=== PATIENT | female | born 1975 ===

== ENCOUNTER 2017-10-24 14:07 | Emergency (ER) | payer MEDICAID, OTHER ==
[2017-10-24 14:21] VITALS: BMI 25.7
[2017-10-24 14:25] VITALS: BP 119/73; PULSE 59; TEMP 99; O2SAT 98
[2017-10-24] MEDS ORDERED: Lidocaine 5% Patch TD STA (14:33)
--- NOTE | 2017-10-24 14:33 | C.PDOC ---
History Of Present Illness NEW ONSET R LOWER BACK PAIN X 2 DAYS. NO TRAUMA. RADATION R BUTTOCK, WORSE W MOVEMENT. NO RELIEF W TYLENOL @ 0800. NO WEAK/NUMB EXAM NONTOXIC BACK +TEND W SPASM R LOWER BACK. NO LS TEND. LIMITED ROM DUE TO PAIN. NEURO INTACT SKIN NO LESIONS Time Seen by Provider: 10/24/17 14:23 Chief Complaint (Nursing): Back Pain History Per: Patient History/Exam Limitations: no limitations Onset/Duration Of Symptoms: Days Current Symptoms Are (Timing): Still Present Severity: Moderate Past Medical History Reviewed: Historical Data, Nursing Documentation, Vital Signs Vital Signs: Last Vital Signs Temp 99.0 F 10/24/17 14:21 Pulse 59 L 10/24/17 14:21 Resp 18 10/24/17 14:21 BP 119/73 10/24/17 14:21 Pulse Ox 98 10/24/17 14:33 - Medical History PMH: No Chronic Diseases Surgical History: Cholecystectomy Family History: States: No Known Family Hx - Social History Hx Alcohol Use: No Hx Substance Use: No - Immunization History Hx Tetanus Toxoid Vaccination: No (DENIES) Hx Influenza Vaccination: No (DENIES) Hx Pneumococcal Vaccination: No (DENIES) Review Of Systems Except As Marked, All Systems Reviewed And Found Negative. Musculoskeletal: Positive for: Back Pain (pain in right lower back, radiates into right buttock), Other (no trauma) Neurological: Negative for: Weakness, Numbness Physical Exam - Physical Exam Appears: Non-toxic, No Acute Distress Skin: Normal Color, Warm, Other (no lesions) Head: Atraumatic, Normacephalic Eye(s): bilateral: Normal Inspection, PERRL Nose: Normal Neck: Supple Chest: Symmetrical Respiratory: Plerual Rub Back: Decreased ROM (limited rom due to pain), No Paraspinal Tenderness, Other ( tenderness with spasm in the right lower back) Neurological/Psych: Oriented x3, Normal Speech, Normal Cognition, Normal Motor, Normal Sensation, Other (intact) ED Course And Treatment O2 Sat by Pulse Oximetry: 98 (RA) Pulse Ox Interpretation: Normal Medical Decision Making Medical Decision Making: Plan: --Flexeril - 10 mg PO --Neurontin 300 mg PO --Toradol 30 mg IM --Lidocaine 5% Disposition Counseled Patient/Family Regarding: Diagnosis, Need For Followup, Rx Given - Disposition Referrals: YOUR,PMD [Other] Disposition: HOME/ ROUTINE Disposition Time: 14:32 Condition: IMPROVED Additional Instructions: APLICA PARCHE AL FARRUKH AFECTADA. MAX 3 PARCHES A LA VEZ. RETIRE EL PATCH 12 HORAS DESPUS DE LA APLICACIN INICIAL. ALTERNATIVAS 12 HORAS ACTIVADAS, 12 HORAS DESACTIVADAS. Prescriptions: Cyclobenzaprine [Flexeril] 10 mg PO TID #15 tab Gabapentin [Neurontin] 300 mg PO TID #30 cap Ibuprofen [Motrin] 600 mg PO Q6 #30 tab Lidocaine 5% [Lidoderm] 1 ea TD PRN PRN #10 patch PRN Reason: Pain, Moderate (4-7) Instructions: Lumbar Radiculopathy (ED) Forms: [employer] (Faroese), Work Excuse Print Language: UZBEK - Clinical Impression Clinical Impression: Sciatica - Scribe Statement The provider has reviewed the documentation as recorded by the Michellibcrow Lindsey Provider Attestation: All medical record entries made by the Michellibe were at my direction and personally dictated by me. I have reviewed the chart and agree that the record accurately reflects my personal performance of the history, physical exam, medical decision making, and the department course for this patient. I have also personally directed, reviewed, and agree with the discharge instructions and disposition.
[2017-10-24] MEDS ORDERED: Lidocaine 5% Patch TD ONE (14:39)
[2017-10-24 14:43] LABS: SQUAMOUS EPITHIAL < 1 /hpf (0-5); URINE BILIRUBIN NEGATIVE (NEGATIVE); URINE BLOOD NEGATIVE (NEGATIVE); URINE CLARITY Clear (Clear); URINE COLOR Colorless (YELLOW); URINE GLUCOSE (UA) NORMAL (Normal); URINE LEUKOCYTE ESTERASE NEG Leu/uL (Negative); URINE NITRATE NEGATIVE (NEGATIVE); URINE PROTEIN NEGATIVE (NEGATIVE); URINE UROBILINOGEN NORMAL mg/dL (0.2-1.0)
[2017-10-24 14:52] VITALS: RESP 20
== END 2017-10-24 14:51 | disposition home or self-care (01) ==
LOC: C.ER 14:07
DX: M54.31 Sciatica, right side (principal)
CPT/HCPCS: 81001; 96372; 99283; J1885

== ENCOUNTER 2018-03-20 22:05 | Emergency (ER) | payer SELFPAY ==
[2018-03-20 22:05] VITALS: BMI 25.7
[2018-03-20] MEDS ORDERED: Sodium Chloride 0.9% 1,000 ML IV STA (23:08)
[2018-03-20 23:23] LABS: BASO % 0.3 % (0.0-2.0); EOS % 0.1 % (0.0-4.0); HEMOGLOBIN 12.3 g/dL (11.0-16.0); LYMPH # 1.4 K/uL (1.0-4.3); LYMPH % 11.7 % (20.0-40.0); MEAN CELL VOLUME 89.4 fL (81.0-99.0); MEAN CORPUSCULAR HEMOGLOBIN 31.6 pg (27.0-31.0); MEAN CORPUSCULAR HGB CONC 35.4 g/dL (33.0-37.0); MONO # 0.7 K/uL (0.0-0.8); MONO % 5.6 % (0.0-10.0); NEUT # 9.8 K/uL (1.8-7.0); NEUT % 82.3 % (50.0-75.0); RBC 3.9 Mil/uL (3.80-5.20); RED CELL DISTRIBUTION WIDTH 13.1 % (11.5-14.5); WHITE BLOOD COUNT 11.9 K/uL (4.8-10.8)
[2018-03-20] MEDS ORDERED: Sodium Chloride 0.9% 1,000 ML ONE (23:27)
[2018-03-20 23:28] LABS: SQUAMOUS EPITHIAL 1 /hpf (0-5); URINE BACTERIA FEW (<OCC); URINE BILIRUBIN NEGATIVE (NEGATIVE); URINE BLOOD 1+ (NEGATIVE); URINE CLARITY Clear (Clear); URINE COLOR Yellow (YELLOW); URINE GLUCOSE (UA) NORMAL (Normal); URINE LEUKOCYTE ESTERASE TRACE Leu/uL (Negative); URINE PROTEIN NEGATIVE (NEGATIVE)
[2018-03-20 23:29] LABS: HCG,QUALITATIVE URINE NEGATIVE (NEGATIVE)
[2018-03-20 23:35] LABS: ALB/GLOB RATIO 1.1 (1.0-2.1); ALBUMIN 4.1 g/dL (3.5-5.0); ALT/SGPT 62 U/L (9-52); AST/SGOT 63 U/L (14-36); BLOOD UREA NITROGEN 14 mg/dL (7-17); CALCIUM 9.1 mg/dl (8.6-10.4); GFR AFRICAN-AMERICAN > 60; GFR NON-AFRICAN AMERICAN > 60
[2018-03-20 23:49] LABS: VENOUS BLOOD GAS BASE EXCESS -1.5 mmol/L (0.0-2.0); VENOUS BLOOD GAS PCO2 41 mmHg (40-60); VENOUS BLOOD GAS PO2 28 mm/Hg (30-55); VENOUS BLOOD PH 7.37 (7.32-7.43)
[2018-03-21] MEDS ORDERED: Iodixanol 320 mg/ml 150 ml Bottle IV ONE (00:15)
--- NOTE | 2018-03-21 01:43 | CT ---
EXAM: CT Abdomen and Pelvis With Intravenous Contrast CLINICAL HISTORY: 42 years old, female; Pain; Abdominal pain; Additional info: Fever, lower abdominal pain TECHNIQUE: Axial computed tomography images of the abdomen and pelvis with intravenous contrast. All CT scans at this facility use one or more dose reduction techniques, viz.: automated exposure control; ma/kV adjustment per patient size (including targeted exams where dose is matched to indication; i.e. head); or iterative reconstruction technique. Coronal and sagittal reformatted images were created and reviewed. CONTRAST: 100 mL of [id number] administered intravenously. COMPARISON: No relevant prior studies available. FINDINGS: Lung bases: Unremarkable. No mass. No consolidation. ABDOMEN: Liver: Unremarkable. No mass. Gallbladder and bile ducts: There has been a cholecystectomy. No ductal dilation. Pancreas: Unremarkable. No mass. No ductal dilation. Spleen: Unremarkable. No splenomegaly. Adrenals: Unremarkable. No mass. Kidneys and ureters: Unremarkable. No solid mass. No hydronephrosis. Stomach and bowel: Unremarkable. No obstruction. No mucosal thickening. PELVIS: Appendix: A normal appendix is identified. Bladder: Unremarkable. No mass. Reproductive: Unremarkable as visualized. ABDOMEN and PELVIS: Intraperitoneal space: Unremarkable. No free air. No significant fluid collection. Bones/joints: No acute fracture. No dislocation. Soft tissues: Unremarkable. Vasculature: Unremarkable. No abdominal aortic aneurysm. Lymph nodes: Unremarkable. No enlarged lymph nodes. IMPRESSION: No acute findings. Cholecystectomy.
--- NOTE | 2018-03-21 02:07 | C.PDOC ---
Time Seen by Provider: 03/20/18 22:41 Chief Complaint (Nursing): Fever History Per: Patient, Family Onset/Duration Of Symptoms: Days (1) Current Symptoms Are (Timing): Still Present Associated Symptoms: Fever, Chills, Sore Throat, Nausea, Other (Suprapubic pain) Severity: Moderate Additional History Per: Prior Records Past Medical History Reviewed: Historical Data, Nursing Documentation, Vital Signs Vital Signs: Last Vital Signs Temp 100.8 F H 03/21/18 00:15 Pulse 93 H 03/20/18 22:19 Resp 16 03/20/18 22:19 BP 129/78 03/20/18 22:19 Pulse Ox 100 03/20/18 22:19 - Medical History PMH: No Chronic Diseases Surgical History: Cholecystectomy Family History: States: Unknown Family Hx - Social History Hx Tobacco Use: No Hx Alcohol Use: No Hx Substance Use: No - Immunization History Hx Tetanus Toxoid Vaccination: No (DENIES) Hx Influenza Vaccination: No (DENIES) Hx Pneumococcal Vaccination: No (DENIES) Review Of Systems Except As Marked, All Systems Reviewed And Found Negative. Constitutional: Positive for: Fever, Chills, Malaise ENT: Positive for: Throat Pain Cardiovascular: Negative for: Chest Pain Respiratory: Negative for: Cough, Shortness of Breath Gastrointestinal: Positive for: Abdominal Pain Genitourinary: Positive for: Dysuria Musculoskeletal: Negative for: Neck Pain, Back Pain Skin: Negative for: Rash Neurological: Negative for: Weakness, Numbness Physical Exam - Physical Exam Appears: Non-toxic, No Acute Distress Skin: Normal Color, Warm, Dry, No Rash Head: Atraumatic, Normacephalic Eye(s): bilateral: Normal Inspection, PERRL, EOMI Oral Mucosa: Moist, No Drooling, No Trismus Throat: Erythema, No Exudate, No Drooling, No Mass Neck: Normal ROM, Supple Lymphatic: No Adenopathy Cardiovascular: Rhythm Regular Respiratory: Normal Breath Sounds, No Accessory Muscle Use Gastrointestinal/Abdominal: Soft, Tenderness (suprapubic), No Guarding, No Rebound Back: No CVA Tenderness Extremity: Normal ROM Neurological/Psych: Oriented x3, Normal Motor, Normal Sensation ED Course And Treatment - Laboratory Results Result Diagrams: 03/20/18 23:20 03/20/18 23:20 Urine POC: Negative O2 Sat by Pulse Oximetry: 100 Pulse Ox Interpretation: Normal - CT Scan/US CT abd/pelv Other Rad Studies (CT/US): Read By Radiologist, Radiology Report Reviewed CT/US Interpretation: IMPRESSION: No acute findings. . Cholecystectomy. Progress - Interventions Interventions:: Observation, Intravenous fluid - Medications Administered Oral: NSAID Intravenous: Antiemetic - Data Reviewed Data Reviewed: Lab, Diagnostic imaging, Old records - Patient Status Patient status: Mostly improved - Continuity of Care Discussed patient case with:: Patient, Family-HIPPA compliant, ED Nurse - Patient Plan Patient Plan: Discharge, F/U with PCP Disposition Counseled Patient/Family Regarding: Studies Performed, Diagnosis, Need For Followup, Rx Given - Disposition Referrals: [facility] at [facility] [Outside] Disposition: HOME/ ROUTINE Disposition Time: 02:08 Condition: STABLE Additional Instructions: Drink plenty of fluids. Follow up with your doctor or in the clinic. Return to the ER if you develop trouble breathing or swallowing, worsening of symptoms or if you have any other concerns. Prescriptions: Acetaminophen [Tylenol Extra Strength] 2 tab PO Q6 PRN #30 tablet PRN Reason: Pain, Moderate (4-7) Cephalexin [cephalexin] 500 mg PO TID #30 cap Instructions: Sore Throat, Adult (DC) Print Language: SOUTH AFRICAN - Clinical Impression Clinical Impression: Fever, Pharyngitis
[2018-03-21 02:25] VITALS: BP 133/80; PULSE 98; RESP 18; TEMP 100; O2SAT 97
== END 2018-03-21 02:08 | disposition home or self-care (01) ==
LOC: C.ER 22:05
DX: J02.9 Acute pharyngitis, unspecified (principal); R50.9 Fever, unspecified
CPT/HCPCS: 74177; 80053; 81001; 82803; 84703; 85025; 87040; 87070; 87086; 87430; 96361; 96374; 99285; J2405; J7030; Q9967

== ENCOUNTER 2018-04-05 02:09 | Emergency (ER) | payer SELFPAY ==
[2018-04-05 02:11] VITALS: BMI 25.7
[2018-04-05 02:18] VITALS: O2SAT 99
[2018-04-05 02:43] LABS: SQUAMOUS EPITHIAL 2 /hpf (0-5); URINE AMORPHOUS SEDIMENT RARE /ul (<OCC); URINE BILIRUBIN NEGATIVE (NEGATIVE); URINE BLOOD NEGATIVE (NEGATIVE); URINE CLARITY Hazy (Clear); URINE COLOR Yellow (YELLOW); URINE GLUCOSE (UA) NORMAL (Normal); URINE LEUKOCYTE ESTERASE 1+ Leu/uL (Negative); URINE PROTEIN NEGATIVE (NEGATIVE); URINE UROBILINOGEN NORMAL mg/dL (0.2-1.0)
[2018-04-05 02:44] LABS: HCG,QUALITATIVE URINE NEGATIVE (NEGATIVE)
--- NOTE | 2018-04-05 03:03 | C.PDOC ---
History Of Present Illness 42 year old female presents to the ER with a complaint of suprapubic pain since yesterday, associated with dysuria and subjective fever. Denies nausea or vomiting, vaginal bleeding, vaginal discharge.. Time Seen by Provider: 04/05/18 02:35 Chief Complaint (Nursing): Female Genitourinary History Per: Patient History/Exam Limitations: no limitations Onset/Duration Of Symptoms: Days Current Symptoms Are (Timing): Still Present Quality Of Discomfort: Unable To Describe Associated Symptoms: Fever (Subjective), Urinary Symptoms (Dysuria). denies: Nausea, Vomiting Alleviating Factors: None Recent travel outside of the [place]: No Abnormal Vaginal Bleeding: No Past Medical History Reviewed: Historical Data, Nursing Documentation, Vital Signs Vital Signs: Last Vital Signs Temp 98.1 F 04/05/18 03:23 Pulse 76 04/05/18 03:23 Resp 18 04/05/18 03:23 BP 122/71 04/05/18 03:23 Pulse Ox 99 04/05/18 03:23 Surgical History: Cholecystectomy Family History: States: Unknown Family Hx - Social History Hx Tobacco Use: No Hx Alcohol Use: No Hx Substance Use: No - Immunization History Hx Tetanus Toxoid Vaccination: No (DENIES) Hx Influenza Vaccination: No (DENIES) Hx Pneumococcal Vaccination: No (DENIES) Review Of Systems Constitutional: Positive for: Fever (Subjective) Cardiovascular: Negative for: Chest Pain Respiratory: Negative for: Shortness of Breath Gastrointestinal: Positive for: Abdominal Pain. Negative for: Nausea, Vomiting Genitourinary: Positive for: Dysuria Skin: Negative for: Rash Physical Exam - Physical Exam Appears: Non-toxic Skin: Normal Color, Warm, Dry, No Rash Head: Atraumatic, Normacephalic Eye(s): bilateral: Normal Inspection, PERRL, EOMI Oral Mucosa: Moist Chest: Symmetrical, No Tenderness Cardiovascular: Rhythm Regular Respiratory: Normal Breath Sounds, No Rales, No Rhonchi, No Wheezing Gastrointestinal/Abdominal: Soft, Tenderness (Suprapubic), No Guarding, No Rebound Back: No CVA Tenderness Neurological/Psych: Oriented x3, Normal Speech, Normal Motor ED Course And Treatment O2 Sat by Pulse Oximetry: 99 (Room air) Pulse Ox Interpretation: Normal Medical Decision Making Medical Decision Making: Urinalysis ordered, results were positive for UTI. Cipro, motrin, and pyridium administered. On reevaluation, patient reports improvement of pain, will discharge home with Rx and instructions to follow up with PMD or return if symptoms worsen. Disposition - Disposition Referrals: [facility] at [facility] [Outside] Disposition: HOME/ ROUTINE Disposition Time: 03:00 Condition: GOOD Additional Instructions: Follow up with the medical doctor within 1-2 days. Return if worsened. Prescriptions: Ciprofloxacin [Cipro] 1 tab PO BID #14 tab Ibuprofen [Motrin] 1 tab PO TID PRN #30 tab PRN Reason: Pain Phenazopyridine HCl [Pyridium] 200 mg PO TID #10 tablet Instructions: Urinary Tract Infection, Adult (DC) Forms: [employer] (Maltese) - Clinical Impression Clinical Impression: UTI (urinary tract infection) - Scribe Statement The provider has reviewed the documentation as recorded by the Scribcrow Robb All medical record entries made by the Scribe were at my direction and personally dictated by me. I have reviewed the chart and agree that the record accurately reflects my personal performance of the history, physical exam, medical decision making, and the department course for this patient. I have also personally directed, reviewed, and agree with the discharge instructions and disposition.
[2018-04-05 03:25] VITALS: BP 122/71; PULSE 76; RESP 18; TEMP 98.1
== END 2018-04-05 03:25 | disposition home or self-care (01) ==
LOC: C.ER 02:09
DX: N39.0 Urinary tract infection, site not specified (principal)